=== PATIENT | male | born 1965 | race Two or more races ===

== ENCOUNTER 2016-08-31 23:34 | Emergency (ER) | payer BC, MEDICAID ==
[~2016-08-31] VITALS: Ht 160 cm; Wt 72.6 kg
[~2016-08-31 23:34] MED LIST: CALCITROL PO; CALCIUM; LISINOPRIL; WATER PILL
--- NOTE | 2016-08-31 23:45 | NUR ---
Pt to room, changed into gown and placed on monitor. Pt c/o dizziness, hypertension and unprovoked, non radiating mid sternal tightness. Pt sts tightness started at approx 2230. Pt appears pale and diaphortic. Pt NSR on monitor. EKG obtained and shown to MD. Pt denies SOB, denies any N/V. Resp are even and unlabored. IV established, labs drawn and sent. Pt resting in position of comfort for self. Awaiting further eval.
[2016-08-31 23:53] VITALS: BP 163/112
--- NOTE | 2016-09-01 00:01 | NUR ---
Pt seen by MD. Pt sts he took his own 81 mg aspirin prior to arrival. Pt given first dose of nitro, no relief. Pt complaining chest tightness is getting worse sts it is up to a 6/10. Pt appears more diaphortic. MD notified and pt given 2 nitro SL. Will monitor for effects of medication.
[2016-09-01 00:07] LABS: BASOPHILS % (AUTO) 0.5 % (0.0-2.0); EOSINOPHILS # (AUTO) 0.2 K/uL (0.0-0.7); EOSINOPHILS % (AUTO) 2.8 % (0.0-7.0); HEMATOCRIT 41.9 % (40-50); HEMOGLOBIN 14.2 G/DL (14.0-18.0); LYMPHOCYTES % (AUTO) 27.4 % (20.5-51.5); MEAN CORPUSCULAR HEMOGLOBIN 28.4 UUG (27.0-31.0); MEAN CORPUSCULAR HGB CONC 34 g/dL (32.0-37.0); MEAN CORPUSCULAR VOLUME 83.5 FL (82.0-92.0); MONOCYTES # (AUTO) 0.7 K/UL (0.1-1.30); MONOCYTES % (AUTO) 10.1 % (0.0-11.0); NEUTROPHILS # (AUTO) 4.3 K/UL (1.8-8.9); NEUTROPHILS % (AUTO) 59.2 % (38.5-71.5); PLATELET COUNT (AUTO) 338 K/UL (150-450); RED BLOOD CELL COUNT(AUTO) 5.01 MIL/UL (4.7-6.1); WHITE BLOOD COUNT (AUTO) 7.2 K/UL (4.0-11.2)
[2016-09-01 00:19] LABS: BILIRUBIN,DIRECT 0.2 mg/dL (0.0-0.2); BILIRUBIN,TOTAL 0.9 mg/dL (0.2-1.0); CREATININE 1.2 mg/dL (0.6-1.3); TOTAL PROTEIN, SERUM 7.3 g/dL (6.4-8.2)
[2016-09-01 00:21] LABS: POTASSIUM 2.5 mmol/L (3.5-5.1)
--- NOTE | 2016-09-01 00:30 | NUR ---
Dr. Swain called [facility], awaiting call back for MD to MD. Pt sts pain has improved. Pt appears more comfortable. Pt less pale, less diaphortic. Pt resting in position of comfort for self.
--- NOTE | 2016-09-01 00:45 | NUR ---
[facility] called back. Dr. Swain spoke with Dr. Taylor. auth # [id number]
--- NOTE | 2016-09-01 01:05 | NUR ---
Second IV established. IV potassium started and is infusing via pump. Pt remains NSR on monitor. Pt c/o dizziness only with changing positions at this time. Pt resting in position of comfort for self. Denies any chest tightness. Awaiting call back from [place] for bed placement
[2016-09-01] MEDS ORDERED: MAGN400T26 PO (01:14)
[2016-09-01] MEDS ORDERED: ASPI-605 PO (01:14)
[2016-09-01] MEDS ORDERED: LEVO175T7 PO (01:14)
[2016-09-01] MEDS ORDERED: EPLE50TA9 PO (01:14)
[2016-09-01] MEDS ORDERED: LISI40TA4 PO (01:14)
[2016-09-01] MEDS ORDERED: CALC-1049 PO (01:14)
[2016-09-01] MEDS ORDERED: POTA20LI4 PO (01:14)
[2016-09-01] MEDS ORDERED: HYDR-4077 PO (01:14)
[2016-09-01] MEDS ORDERED: ATEN25TA PO (01:14)
[2016-09-01] MEDS ORDERED: SILD20TA PO (01:14)
--- NOTE | 2016-09-01 01:38 | NUR ---
Pt sts chest pain is returning. MD notified and pt medicated, will monitor for effects of medication.
--- NOTE | 2016-09-01 02:00 | NUR ---
Pt sts pain improved. Sts pain is approx 2/10. Pt assisted with urinal, conts to c/o dizziness with changing positions. Pt to be transferred to [facility], accepted by Dr. Gomes. Call report to [phone].
--- NOTE | 2016-09-01 02:45 | NUR ---
CCT transport at bedside. Report called to SIM Gregorio at [facility]. Preparing to transfer pt to [facility].
--- NOTE | 2016-09-01 03:01 | NUR ---
Pt complained that the pain was returning. MD notified and pt medicated with an additional 2mg of morphine. Pt sts pain improved from a 07/25 to a 02/24. SIM Gregorio at [facility] called and updated.
== END 2016-09-01 03:00 | disposition short-term general hospital (02) ==
LOC: ER 23:38
DX: R07.9 Chest pain, unspecified (principal); T50.2X5A Adverse effect of carbonic-anhydrase inhibitors, benzothiadiazides and other diuretics, initial encounter; E83.51 Hypocalcemia; E87.6 Hypokalemia; I10 Essential (primary) hypertension; Z86.73 Personal history of transient ischemic attack (TIA), and cerebral infarction without residual deficits; E07.9 Disorder of thyroid, unspecified; Y92.9 Unspecified place or not applicable
CPT/HCPCS: 36415; 70030-TC; 71010; 85025; 85730; 93005; A4663; J0610; J2270; J2405; J3480; J7030; J7040; J7060